=== PATIENT | female | born 1995 | race Caucasian/White ===

== ENCOUNTER 2020-08-29 13:04 | Emergency (ER) | payer MEDICAID, OTHER ==
[~2020-08-29] VITALS: Ht 149.9 cm; Wt 72.6 kg
[2020-08-29 13:34] LABS: *BILIRUBIN,URIN NEGATIVE (NEGATIVE); *BLOOD, URINE NEGATIVE (NEGATIVE); *CLARITY,URINE CLEAR (CLEAR); *COLOR,URINE YELLOW (YELLOW); *KETONES,URINE NEGATIVE (NEGATIVE); *URINE HCG, QUAL NEG (NEGATIVE); *UROBILINOGEN,URINE 0.2 E.U./dl (NORMAL); LEUKOCYTE ESTERASE ,URINE NEGATIVE (NEGATIVE); NITRITE, URINE NEGATIVE (NEGATIVE); PH,URINE 6.5 (5.0-8.0); UGLUCOSE NEGATIVE (NEGATIVE)
--- NOTE | 2020-08-29 13:34 | NUR ---
Dr Butler at the bedside for MSE.
[2020-08-29] MEDS ORDERED: ONDA4TAB11 PO (13:41)
[2020-08-29 13:46] VITALS: BP 115/79
--- NOTE | 2020-08-29 13:46 | NUR ---
Patient discharged to home in stable condition. Written and verbal after care instructions given. Patient verbalizes understanding of instructions. Stressed follow up or return to ER for worsening s/s.
== END 2020-08-29 13:46 | disposition home or self-care (01) ==
LOC: ER 13:04
DX: R14.0 Abdominal distension (gaseous) (principal)
CPT/HCPCS: 84703; A4663